=== PATIENT | male | born 1960 | race Caucasian/White ===

== ENCOUNTER 2016-05-10 11:13 | Emergency (ER) | payer OTHER ==
--- NOTE | ~2016-05-10 | CT4 ---
[facility] A Service of [facility] RADIOLOGY TEXT RESULTS PATIENT: MCKAYLA LOGAN LOCATION: [facility] : 58 UNIT #: [id number] AGE: [address]: Michelle Singleton APRN SEX: M ORDER DR: [id number] [facility] [address] [place], [place] [address] [id number] MR#: [id number] Acc #: [id number] NAME: MCKAYLA LOGAN : 1960 SEX: M STUDY DATE/TIME: 05/10/2016 11:35 UNIT: [facility] ROOM: STUDY DESCRIPTION: CT Abd and Pelv Wo Cont Attending Physician: Michelle Singleton A.P.R.N. Ordering Physician: Michelle Singleton A.P.R.N. Primary Care Physician: Solomon Riley M.D. MEDICAL IMAGING REPORT This report is preliminary unless electronic signature is present EXAM CT abdomen and pelvis, noncontrast, 05/10/2016. HISTORY 55-year-old male in the ED complaining of 3-day history of right flank pain. History of kidney stones. TECHNIQUE CT examination of the abdomen and pelvis without oral or IV contrast using kidney stone protocol. This CT exam was performed with one or more of the following radiation dose reduction techniques: automatic exposure control, adjustment of mA and/or kV according to patient size, and iterative reconstruction. FINDINGS ABDOMEN: There is a 5 mm obstructing stone in the right mid-ureter, several cm below the UPJ, causing moderate right hydronephrosis. 1 or 2 tiny non-obstructing calculi within each kidney. Probable right renal cysts with the largest right mid-renal cyst measuring 4.6 cm. Liver, pancreas and spleen are normal in size and appearance without contrast. Non-distended gallbladder. No bile duct dilatation. Mild scattered diverticulosis within the sigmoid and descending colon. Small bowel and colon are otherwise normal in caliber and appearance. No evidence of acute appendicitis. Normal caliber abdominal aorta. PELVIS: Bladder, prostate and rectum are within normal limits. Postop changes bilateral inguinal herniorrhaphy. IMPRESSION [facility] A Service of [facility] RADIOLOGY TEXT RESULTS PATIENT: MCKAYLA LOGAN LOCATION: [facility] : 58 UNIT #: [id number] AGE: [address]: Michelle Singleton APRN SEX: M ORDER DR: 1. Obstructing 5 mm calculus in the right mid-ureter, several centimeter below the UPJ, causing moderate right hydronephrosis. 2. 1 or 2 tiny non-obstructing calculi within each kidney. 3. Right renal cyst with largest cyst in the mid-kidney measuring 4.6 cm. 4. Postop changes bilateral inguinal herniorrhaphy surgery. 5. Minimal colonic diverticulosis. Dictated by... Abdi Nash M.D. THIS IS AN ELECTRONICALLY VERIFIED REPORT Abdi Nash M.D. at 05/11/2016 8:40 AM GODWIN/jae TD: 05/10/2016 18:56 JOB #: [id number] MEDICAL IMAGING REPORT COPY
--- NOTE | ~2016-05-10 | CO ---
Unit #: [id number] #: [id number] Patient: MCKAYLA LOGAN [id number] [place], [place] [address] [id number] MR#: [id number] NAME: MCKAYLA LOGAN ROOM: Age: 55 Sex: M Admission Date: 05/10/2016 : 1960 Attending Physician: Michelle Singleton A.P.R.N. Primary Care Physician: Solomon Riley M.D. CONSULTATION REPORT HISTORY OF PRESENT ILLNESS The patient is a 55-year-old gentleman with history of stones since last , sharp intermittent right flank with associated nausea. The patient reported to the emergency room today with worsening pain since , found with 5.2 mm right proximal to mid ureteral stone with hydronephrosis, questionable right renal mass on noncontrast CAT scan. The patient denies fevers or chills, hematuria, or dysuria. PAST MEDICAL HISTORY As above. Asthma PAST SURGICAL HISTORY Vasectomy. MEDICATIONS Has some medications. ALLERGIES No known drug allergies. SOCIAL HISTORY No tobacco, alcohol, or recreational drugs. FAMILY HISTORY Noncontributory. REVIEW OF SYSTEMS The patient denies headache, vision change, hearing change, cough, sore throat, chest pain, shortness of breath, diarrhea, constipation, numbness or tingling in the extremities, rashes, or easy bruising. PHYSICAL EXAMINATION VITAL SIGNS: Afebrile. Vital signs stable. GENERAL: Resting comfortably, in no acute distress. HEENT: Normocephalic and atraumatic. Extraocular muscles are intact grossly. NECK: Soft, supple. No supraclavicular lymphadenopathy. Normal respiratory effort. Normal to palpation. ABDOMEN: Soft, nontender, nondistended. No CVA tenderness. EXTREMITIES: Full range of motion. No edema bilateral lower extremities. PSYCHIATRIC: Normal mood and affect. NEUROLOGIC: Cranial nerves II through XII are grossly intact. DIAGNOSTIC STUDIES Unit #: [id number] #: [id number] Patient: MCKAYLA LOGAN LABORATORY RESULTS: White blood cell count 13.5, hemoglobin 14.4. Urinalysis demonstrates 0 to 2 white blood cells, 0 to 2 red blood cells, no bacteria. Laboratory examination reveals creatinine 1.8. ASSESSMENT AND PLAN Hydronephrosis, right questionable renal mass, right ureteral stone, right renal failure, right flank pain. Reviewed imaging studies. Discussed options. He has elected for stone intervention. We will plan tomorrow to be arranged as an outpatient, p.o. pain control trial passage, push fluids and Flomax today. Discussed renal mass. We will need contrast study, baseline creatinine stephon moving forward. I discussed the risks, benefits, and alternatives to stone intervention. He has elected for ESWL therapy, possible cystoscopy, stent insertion. Dictated by... Cruzito Crum M.D. TONY/leora TD: 05/10/2016 14:02 JOB #: [id number] CONSULTATION REPORT X Cruzito Crum MD X CONSULTATION REPORT
[2016-05-10 10:59] LABS: URINE SOURCE CLEAN CATCH
[2016-05-10 11:03] LABS: URINE APPEARANCE CLEAR; URINE BILIRUBIN NEG (NEG); URINE BLOOD TRACE (NEG); URINE COLOR YELLOW; URINE GLUCOSE NEG (NEG); URINE KETONE NEG (NEG); URINE LEUKOCYTE ESTERASE TRACE (NEG); URINE NITRATE NEG (NEG); URINE PH 5.5 (5-8); URINE PROTEIN NEG (NEG); URINE SPECIFIC GRAVITY 1.022 (1.003-1.035)
[2016-05-10 11:04] LABS: URBCS1 AUWI 0-2 /[HPF] (0-2); URINE BACTERIA AUWI NEG (NEGATIVE); URINE SQUAMOUS EPITHELIAL CELL NONE SEEN /[HPF]; UWBCS1 AUWI 0-2 (0-5)
[2016-05-10 11:06] LABS: BASOPHIL# 0.1 X10e3 (0-0.3); BASOPHIL% 0.5 % (0-2.5); DIFF IND NO; EOSINOPHIL# 0.1 X10e3 (0-0.7); HEMATOCRIT 42.8 % (38.0-50.0); HEMOGLOBIN 14.4 gm/dL (13.0-16.0); LYMPHOCYTE# 1.4 X10e3 (1.0-3.5); LYMPHOCYTE% 10.5 % (17.0-45.0); MEAN CELL VOLUME 85.5 FL (83-96); MEAN CORPUSCULAR HEMOGLOBIN 28.8 PG (28-34); MEAN CORPUSCULAR HGB CONC 33.7 g/dL (30-36); MONOCYTE# 1.6 X10e3 (0-1.0); MONOCYTE% 11.9 % (3.0-12.0); NEUTROPHIL# 10.3 X10e3 (1.5-7.1); NEUTROPHIL% 76.1 % (40-75); PLATELET COUNT 297 X10e3 (140-420); RED CELL DISTRIBUTION WIDTH 13.3 % (11.0-15.5); WHITE BLOOD COUNT 13.5 X10e3 (4.0-10.5)
[2016-05-10 11:07] LABS: CULTURE INDICATED? NO
[2016-05-10 11:34] LABS: ALBUMIN SERUM 3.8 g/dL (3.5-5.0); BILIRUBIN,TOTAL 1.1 mg/dL (0.2-2.0); BUN/CREATININE RATIO 9.44; CALCIUM SERUM 8.5 mg/dL (8.4-10.2); CREATININE SERUM 1.8 mg/dL (0.6-1.4); GLOM FILT RATE Estimated 41.7 mL/min (>60); POTASSIUM 4.2 mmol/L (3.5-5.1); PROTEIN TOTAL SERUM 7.6 g/dL (6.0-8.3)
== END 2016-05-10 13:25 | disposition home or self-care (01) ==
LOC: CED 11:13
PROVIDERS: Nurse Practitioner
DX: N13.2 Hydronephrosis with renal and ureteral calculous obstruction (principal)
CPT/HCPCS: 36415; 74176; 80053; 81003; 85025; 96374; 96375; 99284; J2270; J2405